=== PATIENT | female | born 1995 | race Two or more races ===

== ENCOUNTER 2021-07-10 14:38 | Emergency (ER) | payer MEDICAID ==
[~2021-07-10] VITALS: Ht 160 cm; Wt 81.6 kg
[2021-07-10 14:39] VITALS: BP 141/86
[2021-07-10] MEDS ORDERED: LIDOCAINE 1% HCL (LOCAL ANESTH.) INJ 20ML MDV IJ ONE (15:30)
[2021-07-10] MEDS ORDERED: IBUP800T27 PO (15:52)
[2021-07-10] MEDS ORDERED: IBUPROFEN 800 MG TAB PO ONE ×2 (15:58→16:00)
== END 2021-07-10 15:54 | disposition home or self-care (01) ==
LOC: ER 14:38
DX: S01.81XA Laceration without foreign body of other part of head, initial encounter (principal); Y09 Assault by unspecified means; Y93.89 Activity, other specified; Y92.89 Other specified places as the place of occurrence of the external cause; Y99.8 Other external cause status
CPT/HCPCS: 12011

== ENCOUNTER 2021-07-17 09:48 | Emergency (ER) | payer MEDICAID ==
[~2021-07-17] VITALS: Ht 160 cm; Wt 81.6 kg
[~2021-07-17 09:48] MED LIST: IBUP800T27 PO
[2021-07-17 10:31] VITALS: BP 126/81
== END 2021-07-17 10:45 | disposition home or self-care (01) ==
LOC: ER 09:48
DX: S01.81XD Laceration without foreign body of other part of head, subsequent encounter (principal); Z79.1 Long term (current) use of non-steroidal anti-inflammatories (NSAID); X58.XXXD Exposure to other specified factors, subsequent encounter

== ENCOUNTER 2022-06-27 16:14 | Emergency (ER) | payer MEDICAID ==
[~2022-06-27] VITALS: Ht 157.5 cm; Wt 96.5 kg
[2022-06-27 16:44] VITALS: BP 151/83
[2022-06-27 18:03] LABS: Urine Bacteria NONE SEEN /hpf (None Seen); Urine Blood Negative /uL (Negative); Urine Specific Gravity 1.018 (1.001-1.035); Urine WBC 1 /hpf (0 - 5)
[2022-06-27 19:38] LABS: Basophils # (auto) 0 10 ^3/uL (0-0.2); Basophils % (auto) 0.3 % (0.0-2.0); Eosinophils # (auto) 0.1 10 ^3/uL (0-0.8); Eosinophils % (auto) 0.9 % (0.0-7.0); Hematocrit 41.6 % (36.0-46.0); Lymphocytes # (auto) 2.6 10 ^3/uL (0.4-5.4); Lymphocytes % (auto) 22.7 % (10.0-50.0); Mean Corpuscular Hgb Conc. 33.7 g/dL (32.0-36.0); Mean Corpuscular Volume 89.3 fL (80.0-100.0); Monocytes # (auto) 0.9 10 ^3/uL (0-1.3); Monocytes % (auto) 8.1 % (0.0-12.0); Neutrophils # (auto) 7.8 10 ^3/uL (1.6-8.6); Red Blood Cells 4.66 10^6/uL (4.0-5.20); White Blood Cell 11.5 10^3/uL (4.4-10.8)
[2022-06-27 20:00] LABS: Albumin 3.6 g/dL (3.4-5.0); BUN/Creatinine Ratio 14.5; Bilirubin, Total 0.2 mg/dL (0.2-1.0); Calcium 8.8 mg/dL (8.5-10.1); Potassium 3.6 mmol/L (3.5-5.1); Total Protein 7.5 g/dL (6.4-8.2)
== END 2022-06-27 23:00 | disposition home or self-care (01) ==
LOC: ER 16:17
DX: Z34.91 Encounter for supervision of normal pregnancy, unspecified, first trimester (principal); M54.50 Low back pain, unspecified; Z3A.01 Less than 8 weeks gestation of pregnancy
CPT/HCPCS: 36415; 76801; 80053; 81001; 83690; 84702; 85025

== ENCOUNTER 2023-01-24 08:40 | Observation (INO) | payer MEDICAID ==
[~2023-01-24 08:40] MED LIST changes: +IBUP-1456 PO; -IBUP800T27 PO
[2023-01-24] MEDS ORDERED: PREN-96 PO (11:06)
== END 2023-01-24 11:15 | disposition home or self-care (01) ==
LOC: UNDOADMOB 08:40 → LDRP 08:40 → UNDODISOB 11:15
PROVIDERS: ADMIT Obstetrics & Gynecology; ATTEND Obstetrics & Gynecology
DX: O24.419 Gestational diabetes mellitus in pregnancy, unspecified control (principal); Z3A.37 37 weeks gestation of pregnancy
CPT/HCPCS: 59025; 76818; 81002; 82948; 82962; 94760; G0378

== ENCOUNTER 2023-01-31 17:27 | Observation (INO) | payer MEDICAID ==
[~2023-01-31 17:27] MED LIST changes: +PREN-96 PO
== END 2023-01-31 18:44 | disposition home or self-care (01) ==
LOC: LDRP 17:27
PROVIDERS: ADMIT Obstetrics & Gynecology; ATTEND Obstetrics & Gynecology
DX: O24.419 Gestational diabetes mellitus in pregnancy, unspecified control (principal); O62.9 Abnormality of forces of labor, unspecified; Z3A.38 38 weeks gestation of pregnancy
CPT/HCPCS: 59025; 76818; 81002; 82962; 94760; G0378

== ENCOUNTER 2023-02-03 16:50 | Observation (INO) | payer MEDICAID ==
[2023-02-05] MEDS ORDERED: METF-370 PO (15:40)
== END 2023-02-03 19:02 | disposition home or self-care (01) ==
LOC: UNDOADMOB 16:50 → LDRP 16:50 → UNDODISOB 19:02
PROVIDERS: ADMIT Obstetrics & Gynecology; ATTEND Obstetrics & Gynecology
DX: O24.419 Gestational diabetes mellitus in pregnancy, unspecified control (principal); Z3A.38 38 weeks gestation of pregnancy
CPT/HCPCS: 59025; 76818; 81002; 82962; 94760; G0378

== ENCOUNTER 2023-02-07 11:03 | Observation (INO) | payer MEDICAID ==
[~2023-02-07 11:03] MED LIST changes: +METF-370 PO
[2023-02-07] MEDS ORDERED: METF-370 PO (13:30)
== END 2023-02-07 13:31 | disposition home or self-care (01) ==
LOC: LDRP 11:03 → UNDOADMOB 11:03 → LDRP 11:07 → UNDODISOB 13:31
PROVIDERS: ADMIT Obstetrics & Gynecology; ATTEND Obstetrics & Gynecology
DX: O24.419 Gestational diabetes mellitus in pregnancy, unspecified control (principal); O12.03 Gestational edema, third trimester; Z3A.39 39 weeks gestation of pregnancy
CPT/HCPCS: 59025; 76805; 76818; 81002; 82948; 82962; 94760; G0378

== ENCOUNTER 2023-02-09 20:24 | Inpatient (IN) | payer MEDICAID ==
[~2023-02-09] VITALS: Ht 160 cm; Wt 113.4 kg
[~2023-02-09 20:24] MED LIST changes: -IBUP-1456 PO
[2023-02-09] MEDS ORDERED: BUTORPHANOL TARTRATE 2 MG/1 ML VIAL IV PRN ×2 (20:45)
[2023-02-09] MEDS ORDERED: PHISODERM TOP SOLN 240ML BTL TOP PRN (20:45)
[2023-02-09] MEDS ORDERED: DERMOPLAST 60ML BOTTLE TOP PRN (20:45)
[2023-02-09] MEDS ORDERED: LIDOCAINE 2%HCL (LOCAL ANESTH.) INJ 20ML MDV IJ PRN (20:45)
[2023-02-09] MEDS ORDERED: PROMETHAZINE HCL 25 MG/ML 1ML IV PRN (20:45)
[2023-02-09] MEDS ORDERED: WITCH HAZEL-GLYCERIN PAD TOP PRN (20:45)
[2023-02-09 21:10] LABS: Basophils # (auto) 0 10 ^3/uL (0-0.2); Basophils % (auto) 0.1 % (0.0-2.0); Eosinophils # (auto) 0.1 10 ^3/uL (0-0.8); Eosinophils % (auto) 0.7 % (0.0-7.0); Hematocrit 39.3 % (36.0-46.0); Hemoglobin 13.4 g/dL (12.2-16.2); Lymphocytes # (auto) 2.2 10 ^3/uL (0.4-5.4); Lymphocytes % (auto) 22.2 % (10.0-50.0); Mean Corpuscular Hemoglobin 28.4 pg (28.0-32.0); Mean Corpuscular Volume 83.4 fL (80.0-100.0); Monocytes # (auto) 0.7 10 ^3/uL (0-1.3); Monocytes % (auto) 6.7 % (0.0-12.0); Neutrophils # (auto) 7.1 10 ^3/uL (1.6-8.6); Neutrophils % (auto) 70.3 % (37.0-80.0); Nucleated Red Blood Cells % 0.1 %; Red Blood Cells 4.72 10^6/uL (4.0-5.20); Red Cell Distribution Width 16.8 % (11.8-14.3); White Blood Cell 10.1 10^3/uL (4.4-10.8)
[2023-02-09 21:19] LABS: Albumin 2.6 g/dL (3.4-5.0); Calcium 9.4 mg/dL (8.5-10.1); Potassium 3.7 mmol/L (3.5-5.1)
[2023-02-09 21:22] LABS: Alcohol, Urine < 3.0 mg/dL (0-10); Amphetamine Screen, Urine NEGATIVE (NEGATIVE); Barbiturate Scree,Urine NEGATIVE (NEGATIVE); Benzodiazephine Screen, Urine NEGATIVE (NEGATIVE); Cannabinoid Screen, Urine NEGATIVE (NEGATIVE); Cocaine Screen, Urine NEGATIVE (NEGATIVE); Opiate Scree,Urine NEGATIVE (NEGATIVE); Phencyclidine Screen, Urine NEGATIVE (NEGATIVE)
[2023-02-09 21:23] LABS: BUN/Creatinine Ratio 13.5 (10.0-20.0); Bilirubin, Total 0.1 mg/dL (0.2-1.0); Total Protein 6.6 g/dL (6.4-8.2)
[2023-02-09 21:40] LABS: INR 0.93 (0.9-1.15); Partial Thromboplastin Time 26.9 SEC (24.5-34.5)
[2023-02-09 21:41] LABS: Urine Bacteria NONE SEEN /hpf (None Seen); Urine Blood Negative /uL (Negative); Urine Mucus FEW (None Seen); Urine Specific Gravity 1.021 (1.001-1.035); Urine WBC 49 /hpf (0 - 5)
[2023-02-09] MEDS: LACTATED RINGER'S 1,000 ML IV SCH (21:57)
[2023-02-09] MEDS ORDERED: NALBUPHINE HCL 10 MG/1ml INJECTION IV PRN (23:30)
[2023-02-10] MEDS ORDERED: fentaNYL CITRATE 100 MCG/2 ML VL EPI ONE (00:30)
[2023-02-10] MEDS ORDERED: ROPIVACAINE HCL 200 ML EPI SCH ×2 (00:30→02:15)
[2023-02-10] MEDS ORDERED: Lidocaine W-Epinephrine 1.5%-1:200,000 INJ 10ml Vial IJ ONE (00:30)
[2023-02-10] MEDS ORDERED: LIDOCAINE HCL 2 %PF INJ 10ML AMP IJ ONE (00:30)
[2023-02-10] MEDS ORDERED: ePHEDrine SULFATE 50 MG/ML AMP IV ONE ×2 (00:30→02:15)
[2023-02-10] MEDS ORDERED: NALOXONE HCL 0.4 MG/ML VIAL IV ONE ×2 (00:30→02:15)
[2023-02-10] MEDS: LACTATED RINGER'S 1,000 ML IV SCH ×2 (00:51→04:24)
[2023-02-10 01:23] LABS: Urine Bacteria NONE SEEN /hpf (None Seen); Urine Blood TRACE /uL (Negative); Urine Specific Gravity 1.007 (1.001-1.035); Urine WBC 6 /hpf (0 - 5)
[2023-02-10] MEDS ORDERED: SODIUM CHLORIDE 0.9% 500 ML IV PRN (02:15)
[2023-02-10] MEDS ORDERED: LACTATED RINGER'S 500 ML IV ONE (02:15)
[2023-02-10] MEDS ORDERED: fentaNYL CITRATE 100 MCG/2 ML VL IV ONE (02:15)
[2023-02-10] MEDS ORDERED: LACT. RINGERS/OXYTOCIN 20UNITS 500 ML IV ONE ×2 (03:00→03:30)
[2023-02-10] MEDS ORDERED: miSOPROStol 100 mcg TAB ONE (05:54)
[2023-02-10] MEDS ORDERED: METHYLERGONOVINE MALEATE 0.2 MG/ML AMP IM ONE (05:54)
[2023-02-10] MEDS ORDERED: METHYLERGONOVINE MALEATE 0.2 MG/ML AMP IM PRN (06:00)
[2023-02-10] MEDS ORDERED: miSOPROStol 100 mcg TAB SL PRN (06:00)
[2023-02-10] MEDS ORDERED: miSOPROStol 100 mcg TAB PR PRN (06:00)
[2023-02-10] MEDS ORDERED: ACETAMINOPHEN 325 MG TAB PO PRN (07:15)
[2023-02-10] MEDS ORDERED: IBUPROFEN 600 MG TAB PO PRN (07:15)
[2023-02-10 11:00] VITALS: BP 128/72
[2023-02-10 15:00] VITALS: BP 132/74
[2023-02-10 18:45] VITALS: BP 121/57
[2023-02-10 22:31] VITALS: BP 123/62
[2023-02-11 03:12] VITALS: BP 118/59
[2023-02-11 07:00] VITALS: BP 129/59
[2023-02-11 07:07] LABS: RPR Non Reactive (Non Reactive)
[2023-02-11] MEDS ORDERED: TETANUS-DIPTH-ACEL PERTUSSIS 0.5ML SYR Tdap IM ONE (11:30)
== END 2023-02-11 13:00 | disposition home or self-care (01) | DRG 560 ==
LOC: LDRP 20:24
PROVIDERS: ADMIT Obstetrics & Gynecology; ATTEND Obstetrics & Gynecology
PROC: 10E0XZZ Delivery of Products of Conception, External Approach (ICD-10-PCS; principal; 2023-02-10)
PROC: 3E0R3BZ Introduction of Anesthetic Agent into Spinal Canal, Percutaneous Approach (ICD-10-PCS; 2023-02-10)
PROC: 00HU33Z Insertion of Infusion Device into Spinal Canal, Percutaneous Approach (ICD-10-PCS; 2023-02-10)
DX: O41.03X0 Oligohydramnios, third trimester, not applicable or unspecified (principal); Z37.0 Single live birth; O24.429 Gestational diabetes mellitus in childbirth, unspecified control; Z23 Encounter for immunization; Z3A.39 39 weeks gestation of pregnancy
CPT/HCPCS: 36415; 59025; 59200; 59409; 62282; 80053; 80307; 81001; 81002; 82962; 85025; 85610; 85730; 86592; 86850; 86900; 86901; 90715; 94760; 96360; 96361; 96365; 96366; 96372; G0378; J2590

== ENCOUNTER 2023-10-13 19:05 | Emergency (ER) | payer MEDICAID ==
[~2023-10-13] VITALS: Ht 160 cm; Wt 97.1 kg
[2023-10-13 19:17] VITALS: BP 145/88; PULSE 120
[2023-10-13] MEDS: IPRATROPIUM BROM 0.5 MG/2.5ML INH SOL NEB ONE (19:52)
[2023-10-13] MEDS: ALBUTEROL SULF 2.5 MG/0.5ML(0.5%) NEB SOLN NEB ONE ×2 (19:53→22:10)
[2023-10-13 20:46] LABS: COVID19 ANTIGEN SOFIA FIA NEGATIVE (NEGATIVE)
[2023-10-13] MEDS ORDERED: ALBU108A5 IN (21:59)
[2023-10-13] MEDS ORDERED: IBUP-1456 PO (21:59)
[2023-10-13] MEDS ORDERED: PRED10TA PO (21:59)
[2023-10-13] MEDS ORDERED: CLIN300C70 PO (21:59)
[2023-10-13] MEDS ORDERED: BENZLOZ2 MT (21:59)
[2023-10-13] MEDS ORDERED: ALBUTEROL SULF 2.5 MG/0.5ML(0.5%) NEB SOLN ONE (22:00)
[2023-10-13 22:11] VITALS: RESP 28; O2SAT 97
[2023-10-13] MEDS: guaiFENesin-CODEINE Liq 5 ML UD PO ONE (22:23)
[2023-10-13] MEDS: cefTRIAXone SOD 1,000 MG VL IM ONE (22:24)
[2023-10-13] MEDS: methylPREDNISolone SOD SUCC 125 MG/2 ML VL IM ONE (22:26)
[2023-10-13 22:27] VITALS: TEMP 99.5
[2023-10-13] MEDS: IBUPROFEN 800 MG TAB PO ONE (22:27)
[2023-10-13] MEDS: ACETAMINOPHEN 325 MG TAB PO ONE (22:27)
== END 2023-10-13 22:37 | disposition home or self-care (01) ==
LOC: ER 19:05
DX: J20.9 Acute bronchitis, unspecified (principal); J03.90 Acute tonsillitis, unspecified; R50.9 Fever, unspecified; Z20.822 Contact with and (suspected) exposure to COVID-19; Z79.899 Other long term (current) drug therapy
CPT/HCPCS: 36415; 71045; 87426; 94640; 96372; 99284; J0696; J2930; J7644

== ENCOUNTER 2024-08-02 14:28 | Observation (INO) | payer MEDICAID ==
[~2024-08-02 14:28] MED LIST changes: +ALBU108A5 IN; +BENZLOZ2 MT; +CLIN1CAP70 PO; +IBUP-1456 PO; +PRED10TA PO
[2024-08-02 15:25] LABS: Basophils # (auto) 0 10 ^3/uL (0-0.2); Basophils % (auto) 0.3 % (0.0-2.0); Eosinophils # (auto) 0.1 10 ^3/uL (0-0.8); Eosinophils % (auto) 0.7 % (0.0-7.0); Hematocrit 40.3 % (36.0-46.0); Hemoglobin 13.5 g/dL (12.2-16.2); Lymphocytes # (auto) 2.3 10 ^3/uL (0.4-5.4); Lymphocytes % (auto) 23.1 % (10.0-50.0); Mean Corpuscular Hgb Conc. 33.4 g/dL (32.0-36.0); Mean Corpuscular Volume 86.8 fL (80.0-100.0); Monocytes # (auto) 0.7 10 ^3/uL (0-1.3); Neutrophils % (auto) 68.9 % (37.0-80.0); Nucleated Red Blood Cells % 0.3 %; Platelet Count (auto) 199 10^3/uL (140-450); Red Blood Cells 4.64 10^6/uL (4.0-5.20); Red Cell Distribution Width 16.7 % (11.8-14.3); White Blood Cell 10.1 10^3/uL (4.4-10.8)
[2024-08-02 15:44] LABS: Albumin 3.8 g/dL (3.2-4.8); Anion Gap 9 (5-15); BUN/Creatinine Ratio 15.2 (10.0-20.0); Potassium 3.8 mmol/L (3.5-5.1); Sodium 136 mmol/L (136-145); Total Protein 6.4 g/dL (5.7-8.2)
[2024-08-02 15:47] LABS: Urine Bacteria FEW /hpf (None Seen); Urine Blood Negative /uL (Negative); Urine Clarity Turbid (Clear); Urine Color Colorless (Yellow); Urine Protein, UAD Negative (Negative); Urine Specific Gravity 1.004 (1.001-1.035); Urine Urobilinogen Normal (Negative); Urine WBC 6 /hpf (0 - 5)
[2024-08-02 15:48] LABS: Chloride 108 mmol/L (98-107)
[2024-08-02 15:49] LABS: Alanine Aminotransferase < 9 U/L (7-40); Alkaline Phosphatase 168 U/L (46-116); Aspartate Aminotransferase 10 U/L (13-40); Bilirubin, Total 0.3 mg/dL (0.2-1.0); Blood Urea Nitrogen 7 mg/dL (9-23); Carbon Dioxide 19 mmol/L (20-31); Glucose 64 mg/dL (74-106)
[2024-08-02 15:58] LABS: INR 0.95 (0.9-1.15); Partial Thromboplastin Time 26.7 SEC (24.5-34.5); Prothrombin Time 10.1 sec (9.3-11.8)
[2024-08-02 16:02] LABS: Uric Acid 6.2 mg/dL (3.1-7.8)
[2024-08-02 16:12] LABS: Creatinine, Urine 15.05 mg/dL (30.0-125.0); Urine Protein/Creatinine Ratio 0.53
--- NOTE | 2024-08-02 16:16 | DVH ---
BIOPHYSICAL PROFILE HISTORY: PIH R/O TECHNIQUE: Multiple transabdominal real-time grayscale sonographic images through the gravid uterus of the fetus with duplex Doppler color flow and M-mode spectral analysis FINDINGS: BIOPHYSICAL PROFILE: breathing score: 2 movement score: 2 tone score: 2 Quantitative SARAH score: 2 (SARAH: 17.5 Cm.) Total score: 8/8 Single live fetus in cephalic presentation. heart rate 174 beats per minute. Fundal placenta without previa or abruption IMPRESSION: 1. Biophysical profile score: 8/8 HS:Y
--- NOTE | 2024-08-02 16:30 | DVHDS2 ---
Physician Discharge Progress N Final Diagnosis: Term IUP elevated BP's Secondary Diagnosis: Mild pre-eclampsia, asymptomatic Operations or Procedures: Operations or Procedures NST/BPP/ SARAH all WNL PIH labs neg except for elevated Urine prot creat ratio 0.53 Patient DECLINED INDUCTION of labor tonight, against medical advise. Will return in the morning for induction of labor. Condition on Discharge: Guarded Disposition: Home Discharge Instructions: Diet: Regular Activity: Light activity Follow Up/Referral: at 7am 08/03/24 Medications: N/A Follow Up Care: Discharge Statement: "Patient was advised to return to the ER or call 911 if any headaches, dizziness, shortness of breath, chest pain, abdominal pain, bleeding, fevers, or worsening of medical condition. Patient was counseled about treatment plan, medications, possible side effects, patientverbalized understanding. All questions were answered to the best of my ability. This discharge took greater then 30 minutes in planning, reviewing documentation, counseling the patient, and discussing with other team members." DARRELL HORN DO Aug 02, 2024 16:30
== END 2024-08-02 16:55 | disposition home or self-care (01) ==
LOC: LDRP 14:28
PROVIDERS: ADMIT Obstetrics & Gynecology; ATTEND Obstetrics & Gynecology
DX: O26.893 Other specified pregnancy related conditions, third trimester (principal); R03.0 Elevated blood-pressure reading, without diagnosis of hypertension; O14.93 Unspecified pre-eclampsia, third trimester; Z3A.39 39 weeks gestation of pregnancy; Z79.899 Other long term (current) drug therapy
CPT/HCPCS: 36415; 76818; 80053; 81001; 82570; 84156; 84550; 85025; 85610; 85730; G0378; 59025; 81002

== ENCOUNTER 2024-08-02 21:00 | Inpatient (IN) | payer MEDICAID ==
[~2024-08-02] VITALS: Ht 160 cm; Wt 112.0 kg
[2024-08-02] MEDS ORDERED: LIDOCAINE 2%HCL (LOCAL ANESTH.) INJ 20ML MDV IJ PRN (21:30)
[2024-08-02] MEDS ORDERED: NALBUPHINE HCL 10 MG/1ml INJECTION IV PRN (21:30)
[2024-08-02 22:17] LABS: Basophils # (auto) 0 10 ^3/uL (0-0.2); Basophils % (auto) 0.1 % (0.0-2.0); Eosinophils # (auto) 0 10 ^3/uL (0-0.8); Eosinophils % (auto) 0.5 % (0.0-7.0); Hemoglobin 12.9 g/dL (12.2-16.2); Lymphocytes # (auto) 2.3 10 ^3/uL (0.4-5.4); Mean Corpuscular Hemoglobin 29.6 pg (28.0-32.0); Mean Corpuscular Volume 86.9 fL (80.0-100.0); Monocytes # (auto) 0.7 10 ^3/uL (0-1.3); Monocytes % (auto) 6.8 % (0.0-12.0); Neutrophils # (auto) 6.6 10 ^3/uL (1.6-8.6); Neutrophils % (auto) 68.6 % (37.0-80.0); Nucleated Red Blood Cells % 0.1 %; Platelet Count (auto) 180 10^3/uL (140-450); Red Blood Cells 4.37 10^6/uL (4.0-5.20); Red Cell Distribution Width 17.3 % (11.8-14.3); White Blood Cell 9.6 10^3/uL (4.4-10.8)
[2024-08-02 22:25] LABS: Urine Bacteria FEW /hpf (None Seen); Urine Blood Negative /uL (Negative); Urine Budding Yeast MODERATE /hpf (None Seen); Urine Clarity Turbid (Clear); Urine Color Yellow (Yellow); Urine Mucus FEW (None Seen); Urine Protein, UAD 1+ (Negative); Urine Specific Gravity 1.029 (1.001-1.035); Urine Urobilinogen Normal (Negative); Urine WBC 32 /hpf (0 - 5); Urine pH 5.5 (5.0-9.0)
[2024-08-02 22:36] LABS: Barbiturate Scree,Urine Neg (NEGATIVE); Opiate Scree,Urine Neg (NEGATIVE); Phencyclidine Screen, Urine Neg (NEGATIVE)
[2024-08-02 22:36] LABS: Albumin 3.5 g/dL (3.2-4.8); Anion Gap 10 (5-15); BUN/Creatinine Ratio 16.3 (10.0-20.0); Calcium 9.8 mg/dL (8.7-10.4); Carbon Dioxide 20 mmol/L (20-31); Sodium 139 mmol/L (136-145)
[2024-08-02 22:37] LABS: Alanine Aminotransferase < 9 U/L (7-40); Alkaline Phosphatase 157 U/L (46-116); Aspartate Aminotransferase 9 U/L (13-40); Bilirubin, Total 0.2 mg/dL (0.2-1.0); Blood Urea Nitrogen 8 mg/dL (9-23); Chloride 109 mmol/L (98-107); Glucose 119 mg/dL (74-106)
[2024-08-02 22:37] LABS: Amphetamine Screen, Urine Neg (NEGATIVE); Benzodiazephine Screen, Urine Neg (NEGATIVE); Cannabinoid Screen, Urine Neg (NEGATIVE); Cocaine Screen, Urine Neg (NEGATIVE)
[2024-08-02 22:39] LABS: INR 0.94 (0.9-1.15); Partial Thromboplastin Time 25.2 SEC (24.5-34.5)
[2024-08-02] MEDS ORDERED: miSOPROStol 50 MCG per PRE-CUT 1/2 TAB PO PRN (23:15)
[2024-08-03] MEDS ORDERED: TERBUTALINE SULFATE 1 MG/ML 1ML VIAL SC PRN (01:45)
[2024-08-03] MEDS: LACTATED RINGER'S 1,000 ML IV SCH (02:06)
[2024-08-03] MEDS: ACETAMINOPHEN 325 MG TAB PO PRN (02:10)
[2024-08-03] MEDS ORDERED: NALOXONE HCL 0.4 MG/ML VIAL IV ONE (02:15)
[2024-08-03] MEDS: LACTATED RINGER'S 1,000 ML IV ONE (02:33)
[2024-08-03] MEDS: ePHEDrine SULFATE 50 MG/ML AMP IV ONE ×2 (03:43→06:12)
[2024-08-03] MEDS: PHISODERM TOP SOLN 240ML BTL TOP PRN (04:04)
[2024-08-03] MEDS: DERMOPLAST 60ML BOTTLE TOP PRN (04:04)
[2024-08-03] MEDS: WITCH HAZEL-GLYCERIN PAD TOP PRN (04:05)
[2024-08-03] MEDS: PENICILLIN G POT 5MIL/D5 50ML 50 ML IV ONE (04:13)
[2024-08-03] MEDS: LACT. RINGERS/OXYTOCIN 20UNITS 1,000 ML IV SCH (04:32)
[2024-08-03] MEDS: ROPIVACAINE HCL 200 ML ONE (04:39)
--- NOTE | 2024-08-03 06:48 | DVHHP2 ---
OB CC & HPI Date Date of Admission: Aug 03, 2024 Patient Identification: : 3 Para: 2 EGA: 39 Chief Complaints: Reason for admission: induction of labor Indication for induction: medical complication (HTN) History of Present Complaints 29y IUP 39 wk admitted with mild pre-eclampsia. BP's elevated in clinic and in L&D triage, urine prot/cr elevated Patient denies any symptoms today, but did have headache earlier. Past Medical History Cardiac: No pertinent Hx Pulmonary: No pertinent Hx Central Nervous System: No pertinent Hx GI: No pertinent Hx Hemotology/Oncology: No pertinent Hx Hepatobiliary: No pertinent Hx Psychiatric: No pertinent Hx Musculoskeletal: No pertinent Hx Rheumotologic: No pertinent Hx Infectious Disease: No peritnent Hx ENT: No pertinent Hx Renal/: No pertinent Hx Endocrine: No pertinent Hx Dermatology: No pertinent Hx Past Surgical History: No pertinent Hx OB History OB History Care: Good Care Ultrasounds: Normal mid trimester US Obstetrical Complications: Pre-eclampsia Allergies: Coded Allergies: NO KNOWN ALLERGIES (Unverified , 07/10/21) Home Meds Active Scripts Ibuprofen (Ibuprofen) 800 Mg Tab, 1 TAB PO Q6HPRN PRN, #90 TAB 1 Refill As needed for fever or pain Prov:LUIS A OROZCO Q RADIO HOST 10/13/23 Prednisone (Prednisone) 10 Mg Tab, 1 TAB PO BID for 5 Days, #10 TAB Prov:LUIS A OROZCO Q RADIO HOST 10/13/23 Albuterol Sulfate (Albuterol Sulfate Hfa) 108 Mcg/Act Aer, 1 PUFF IN Q4HPRN PRN, #1 INH Prov:LUIS A OROZCO Q RADIO HOST 10/13/23 Benzocaine-Menthol (Mouth-Thro (Cepacol Sore Throat) 1 Abhi Abhi, 1 ABHI MT Q4HPRN PRN, #24 ABHI As needed for sore throat Prov:LUIS A OROZCO Q RADIO HOST 10/13/23 Clindamycin Hcl (Clindamycin Hcl) 300 Mg Cap, 1 CAP PO TID for 10 Days, #30 CAP Prov:LUIS A OROZCO Q RADIO HOST 10/13/23 Metformin Hydrochloride (Metformin Hcl) 500 Mg Tab, 1000 MG PO BID for 30 Days, MG Prov:ELSI MOFFETT CNM 02/07/23 Reported Medications Vit W/ Ferrous Fumara ( One Daily) Daily Tab, 1 TAB PO DAILY, #90 TAB 3 Refills 01/24/23 Current Medications Current Medications Medications (Trade) Dose Ordered Sig/Linda Route PRN Reason Start Time Stop Time Status Last Admin Lactated Ringer's 1,000 ml @ 125 mls/hr Q8H IV 08/02/24 21:30 08/03/24 04:12 Nalbuphine HCl (Nubain) 10 mg Q4HP PRN IV MODERATE PAIN (4-6 PAIN SCALE) 08/02/24 21:30 Penicillin G Potassium 6267045 units/Dextrose 50 ml @ 100 mls/hr Q4H IV 08/03/24 01:30 Witch Lashell (Tucks) 1 pad PRN PRN TOP PERINEAL AREA DISCOMFORT 08/02/24 21:30 08/03/24 04:05 Sodium Lauryl Sulfate (Phisoderm) 240 ml PRN PRN TOP PERINEAL AREA DISCOMFORT 08/02/24 21:30 08/03/24 04:04 Benzocaine (Dermoplast) 1 applic PRN PRN TOP PERINEAL AREA DISCOMFORT 08/02/24 21:30 08/03/24 04:04 Lidocaine HCl (Xylocaine) 20 ml ONCE PRN IJ PERINEAL AREA DISCOMFORT 08/02/24 21:30 Misoprostol (Cytotec) 50 mcg Q4HPRN PRN PO CERVICAL RIPENING 08/02/24 23:15 Acetaminophen (Tylenol Tablet) 650 mg Q4HP PRN PO MILD PAIN (1-3 PAIN SCALE) 08/03/24 01:30 08/03/24 02:10 Oxytocin 1,000 ml @ 6 ml/hr Q24H IV 08/03/24 01:45 08/03/24 04:32 Terbutaline Sulfate (Brethine Inj) 0.25 mg ONCE PRN SC Uterine tachysystole 08/03/24 01:45 Family & Social History Family/Social History Blood Type: O+ Rubella: immune RPR/VDRL: Negative GBS Status: Positive HBsAG: Negative Review of Systems Constitutional: No symptom reported Ears, Nose, & Throat: No symptom reported Eyes: No symptom reported Pulmonary/Respiratory: No symptom reported Cardiovascular: No symptom reported Gastrointestinal: No symptom reported Genitourinary: No symptom reported Musculoskeletal: No symptom reported Skin: No symptom reported Psychiatric: No symptom reported Endocrine: No symptom reported Hemotologic/Lymphatic: No symptom reported OB Admission Exam Physical Exam Vitals: see EHR HEENT: NCAT Heart: Rhythm Normal Lungs: Clear Abdomen: Gravid Extremities: Normal Reflexes: Normal Pelvic Exam: RN exam Cervical Dilatation: 4cm Effacement: 50% Station: -2 Membranes: Intact Heart Rate: 140's Accelerations: Accelerations Present Decelerations: No Decelerations Short Term Variability: Present Director Of Promotions Variability: Average (6-25) Contractions on Admission: 6-10 Minutes Apart Intensity: Mild OB Plan Plan Admitting Diagnosis: Pre-eclampsia without severe features Term IUP 39 wk, Induction of labor GBS + Plan: Induction Induction Methd: Pitocin protocol Other Plan: Continue to observe BP Magnesium sulfate indicated only if severe HTN or severe features of Pre-E present Continue Labor induction w/ Pitocin GBS prophylaxis with Pen G antibiotics. DARRELL HORN DO Aug 03, 2024 06:47
[2024-08-03] MEDS: PENICILLIN G POTASSIUM 2,500,000 UNITS in D5W 5% 50 ML IV SCH (09:15)
--- NOTE | 2024-08-03 13:41 | DVHPN2 ---
OB Labor Progress Note Date and Time Seen Date Seen: Aug 03, 2024 Time Seen: 13:38 Subjective Patient reports: No new complaints, Feels better Subjective Comment s/p Epidural NO symptoms of Pre_Eclampsia Objective Vital Signs Afeb VSS Monitoring Method Monitoring Method: Internal (FSE/IUPC placed w/out difficulty) Heart Rate Heart Rate Baseline: 140 Heart Rate Variability: Moderate Presence of FHR Accelerations: Yes Presence of FHR Decelerations: No Contractions Contractions Intensity: Strong Membranes Membranes: Ruptured (AROM clear) Vaginal Exam Vag Exam Deferred: No Vaginal Exam Dilation: 5 Vaginal Exam Effacement: 60 Vaginal Exam Station: -2 Vaginal Exam Presentation: VTX Vaginal Exam Show: None Medications Medications - Pitocin: Yes Medication - Epidural: Yes Lab Results Lab Results Current Medications Medications (Trade) Dose Ordered Sig/Linda Start Time Stop Time Status Last Admin Dose Admin Lactated Ringer's 1,000 ml @ 125 mls/hr Q8H 08/02/24 21:30 08/03/24 04:12 125 MLS/HR Nalbuphine HCl (Nubain) 10 mg Q4HP PRN 08/02/24 21:30 Penicillin G Potassium 50 ml @ 100 mls/hr ONCE ONCE 08/02/24 21:30 08/02/24 21:59 DC 08/03/24 04:13 100 MLS/HR Penicillin G Potassium [id number] units/Dextrose 50 ml @ 100 mls/hr Q4H 08/03/24 01:30 08/03/24 13:17 100 MLS/HR Travis Lobo (Tucks) 1 pad PRN PRN 08/02/24 21:30 08/03/24 04:05 1 PAD Sodium Lauryl Sulfate (Phisoderm) 240 ml PRN PRN 08/02/24 21:30 08/03/24 04:04 240 ML Benzocaine (Dermoplast) 1 applic PRN PRN 08/02/24 21:30 08/03/24 04:04 1 APPLIC Lidocaine HCl (Xylocaine) 20 ml ONCE PRN 08/02/24 21:30 Misoprostol (Cytotec) 50 mcg Q4HPRN PRN 08/02/24 23:15 Acetaminophen (Tylenol Tablet) 650 mg Q4HP PRN 08/03/24 01:30 08/03/24 02:10 650 MG Oxytocin 1,000 ml @ 6 ml/hr Q24H 08/03/24 01:45 08/03/24 04:32 6 ML/HR Terbutaline Sulfate (Brethine Inj) 0.25 mg ONCE PRN 08/03/24 01:45 Naloxone HCl (Narcan) 0.2 mg PRN ONCE 08/03/24 02:15 08/03/24 02:16 DC Ephedrine Sulfate (ePHEDrine SULFATE) 10 mg PRN ONCE 08/03/24 02:15 08/03/24 02:16 DC 08/03/24 03:43 10 MG Lactated Ringer's 1,000 ml @ 1,000 mls/hr Q1H ONCE 08/03/24 02:15 08/03/24 03:14 DC 08/03/24 02:33 1,000 MLS/HR Ephedrine Sulfate (ePHEDrine SULFATE) 10 mg PRN ONCE 08/03/24 06:00 08/03/24 06:01 DC 08/03/24 06:12 10 MG Oxytocin 500 ml @ 999 mls/hr Q31M ONCE 08/03/24 06:00 08/03/24 06:30 DC Oxytocin 500 ml @ 125 mls/hr Q4H ONCE 08/03/24 06:30 08/03/24 10:29 DC Laboratory Tests Test 08/02/24 21:56 08/02/24 21:53 Range/Units White Blood Count 9.6 4.4-10.8 10^3/uL Red Blood Count 4.37 4.0-5.20 10^6/uL Hemoglobin 12.9 12.2-16.2 g/dL Hematocrit 38.0 36.0-46.0 % Mean Corpuscular Volume 86.9 80.0-100.0 fL Mean Corpuscular Hemoglobin 29.6 28.0-32.0 pg Mean Corpuscular Hemoglobin Concent 34.0 32.0-36.0 g/dL Red Cell Distribution Width 17.3 H 11.8-14.3 % Platelet Count 180 140-450 10^3/uL Mean Platelet Volume 8.7 6.9-10.8 fL Neutrophils (%) (Auto) 68.6 37.0-80.0 % Lymphocytes (%) (Auto) 24.0 10.0-50.0 % Monocytes (%) (Auto) 6.8 0.0-12.0 % Eosinophils (%) (Auto) 0.5 0.0-7.0 % Basophils (%) (Auto) 0.1 0.0-2.0 % Neutrophils # (Auto) 6.6 1.6-8.6 10 ^3/uL Lymphocytes # (Auto) 2.3 0.4-5.4 10 ^3/uL Monocytes # (Auto) 0.7 0-1.3 10 ^3/uL Eosinophils # (Auto) 0 0-0.8 10 ^3/uL Basophils # (Auto) 0 0-0.2 10 ^3/uL Nucleated Red Blood Cells 0.1 % Prothrombin Time 10.0 9.3-11.8 sec Prothrombin Time INR 0.94 0.9-1.15 Activated Partial Thromboplast Time 25.2 24.5-34.5 SEC Sodium Level 139 136-145 mmol/L Potassium Level 4.0 3.5-5.1 mmol/L Chloride Level 109 H 98-107 mmol/L Carbon Dioxide Level 20 20-31 mmol/L Anion Gap 10 5-15 Blood Urea Nitrogen 8 L 9-23 mg/dL Creatinine 0.49 L 0.550-1.02 mg/dL Glomerular Filtration Rate Calc 132 >90 mL/min BUN/Creatinine Ratio 16.3 10.0-20.0 Serum Glucose 119 H 74-106 mg/dL Calcium Level 9.8 8.7-10.4 mg/dL Total Bilirubin 0.2 0.2-1.0 mg/dL Aspartate Amino Transferase (AST) 9 L 13-40 U/L Alanine Aminotransferase (ALT) < 9 7-40 U/L Alkaline Phosphatase 157 H 46-116 U/L Total Protein 6.0 5.7-8.2 g/dL Albumin 3.5 3.2-4.8 g/dL Rapid Plasma Reagin Pending Treponema pallidum Ab (TP-PA) Pending Hepatitis C Antibody Negative Negative Urine Color Yellow Yellow Urine Clarity Turbid H Clear Urine pH 5.5 5.0-9.0 Urine Specific [place] 1.029 1.001-1.035 Urine Protein 1+ H Negative Urine Ketones 1+ H Negative Urine Blood Negative Negative /uL Urine Nitrite Negative Negative Urine Bilirubin Negative Negative Urine Urobilinogen Normal Negative mg/dL Urine Leukocyte Esterase 3+ Negative /uL Urine RBC 54 0 - 4 /hpf Urine WBC 32 0 - 5 /hpf Urine Squamous Epithelial Cells Mod <5 /hpf Urine Bacteria Few H None Seen /hpf Urine Mucus Few None Seen Urine Yeast (Budding) Moderate None Seen /hpf Urine Glucose Normal Normal mg/dL Urine Opiates Screen Neg NEGATIVE Urine Fentanyl Screen Neg NEGATIVE Urine Barbiturates Screen Neg NEGATIVE Urine Phencyclidine Screen Neg NEGATIVE Urine Amphetamines Screen Neg NEGATIVE Urine Benzodiazepines Screen Neg NEGATIVE Urine Cocaine Screen Neg NEGATIVE Urine Cannabinoids Screen Neg NEGATIVE Assessment Assessment Mild Pre-Eclampsia, IUP 39 wk- Induction of labor GBS Pos Morbid obesity s/p AROM Cat 1 FHR Plan Plan Continue current care IV pitocin to achieve adequate labor progress, increase to >= 200 MVU Plan discussed with: Patient DARRELL HORN DO Aug 03, 2024 13:41
[2024-08-03] MEDS: LACT. RINGERS/OXYTOCIN 20UNITS 500 ML IV ONE ×2 (16:01→16:24)
--- NOTE | 2024-08-03 16:03 | LDN2 ---
Labor and Delivery Note Date 08/03/24 Age 29 3 Para 3 EGA 39 Diagnosis Induction of labor 39 wk due to mild pre-eclampsia GBS+ Morbid maternal obesity Vaginal Delivery: VTX Vacuum Assisted: No Placenta: Spontaneous Sex: Female Weight Pending Apgars 8/9 Nuchal Cord Transected: No Amniotic Fluid: Clear Anesthesia Epidural Episiotomy: No EBL 75 mL Labs Blood Bank 08/02/24 21:56: Blood Type O POSITIVE Complications None Comments/Significant Med Layo NUCHAL CORD x 1, reduced at perineum before delivery of body Baby vigorous at , no shoulder dystocia or complications DARRELL HORN DO Aug 03, 2024 16:03
[2024-08-03] MEDS ORDERED: IBUPROFEN 600 MG TAB PO PRN (18:15)
[2024-08-03] MEDS ORDERED: ACETAMINOPHEN 325 MG TAB PO PRN (18:15)
[2024-08-03 19:00] VITALS: BP 124/59; PULSE 99; RESP 18; TEMP 98.8; O2SAT 97
[2024-08-03] MEDS: IBUPROFEN 600 MG TAB PO PRN (22:04)
--- NOTE | 2024-08-04 01:49 | DVHPN2 ---
Progress Note Date Seen: Aug 04, 2024 Subjective PPD#1 s/p Induction of labor w/ due to Pre-eclampsia (mild) S: doing well. NO pain, lochia mild. No headache, No epigastric pain vital signs Vital Sign Date Time Temp Pulse Resp B/P (MAP) Pulse Ox O2 Delivery O2 Flow Rate FiO2 08/03/24 19:00 98.8 99 18 124/59 (80) 97 98.8 08/03/24 19:00 Room Air Total Intake and Output 08/03/24 08/03/24 08/04/24 15:00 23:00 07:00 Output Total 600 ml Balance -600 ml medications Current Medications Medications Dose Ordered Sig/Linda Route Start Time Stop Time Status Last Admin Dose Admin Lactated Ringer's 1,000 ml @ 125 mls/hr Q8H IV 08/02/24 21:30 08/03/24 04:12 125 MLS/HR Nalbuphine HCl 10 mg Q4HP PRN IV 08/02/24 21:30 Cancel Witch Lashell 1 pad PRN PRN TOP 08/02/24 21:30 08/03/24 04:05 1 PAD Sodium Lauryl Sulfate 240 ml PRN PRN TOP 08/02/24 21:30 08/03/24 04:04 240 ML Benzocaine 1 applic PRN PRN TOP 08/02/24 21:30 08/03/24 04:04 1 APPLIC Lidocaine HCl 20 ml ONCE PRN IJ 08/02/24 21:30 Cancel Misoprostol 50 mcg Q4HPRN PRN PO 08/02/24 23:15 Cancel Terbutaline Sulfate 0.25 mg ONCE PRN SC 08/03/24 01:45 Cancel Acetaminophen 650 mg Q4HP PRN PO 08/03/24 22:00 Ibuprofen 600 mg Q6HP PRN PO 08/03/24 22:00 08/03/24 22:04 600 MG laboratory and microbiology Laboratory Tests 08/02/24 21:56 Test 08/02/24 21:56 Range/Units Serum Glucose 119 H 74-106 mg/dL Objective O: AFVSS Chest: heart and lung sounds normal. Abd soft, non-tender, fundus firm, BS, no rebound or guarding, Ext Neg Homans, Non-tender, edema Lochia - minimal Labs Pending Assessment/Plan PPD#1 s/p Doing well Pre-Eclampsia, BP's normal post delivery Plan: Continue to observe DC Planning Plan discussed with: Patient DARRELL HORN DO Aug 04, 2024 01:49
[2024-08-04 02:27] LABS: Basophils # (auto) 0 10 ^3/uL (0-0.2); Basophils % (auto) 0.2 % (0.0-2.0); Eosinophils # (auto) 0 10 ^3/uL (0-0.8); Eosinophils % (auto) 0.4 % (0.0-7.0); Hematocrit 37.3 % (36.0-46.0); Hemoglobin 12.4 g/dL (12.2-16.2); Lymphocytes # (auto) 2.9 10 ^3/uL (0.4-5.4); Lymphocytes % (auto) 26.5 % (10.0-50.0); Mean Corpuscular Hemoglobin 29.2 pg (28.0-32.0); Mean Corpuscular Hgb Conc. 33.3 g/dL (32.0-36.0); Mean Corpuscular Volume 87.7 fL (80.0-100.0); Monocytes # (auto) 0.7 10 ^3/uL (0-1.3); Monocytes % (auto) 6.7 % (0.0-12.0); Neutrophils # (auto) 7.2 10 ^3/uL (1.6-8.6); Neutrophils % (auto) 66.2 % (37.0-80.0); Nucleated Red Blood Cells % 0.1 %; Platelet Count (auto) 173 10^3/uL (140-450); Red Blood Cells 4.25 10^6/uL (4.0-5.20); White Blood Cell 10.9 10^3/uL (4.4-10.8)
[2024-08-04 02:46] VITALS: BP 128/60; PULSE 85; TEMP 97.7; O2SAT 95
[2024-08-04 02:53] LABS: Albumin 3.4 g/dL (3.2-4.8); Anion Gap 10 (5-15); Calcium 9.8 mg/dL (8.7-10.4); Carbon Dioxide 22 mmol/L (20-31); Glucose 88 mg/dL (74-106); Potassium 4.3 mmol/L (3.5-5.1); Sodium 141 mmol/L (136-145)
[2024-08-04 02:59] LABS: Alanine Aminotransferase < 9 U/L (7-40); Alkaline Phosphatase 147 U/L (46-116); Aspartate Aminotransferase 9 U/L (13-40); Bilirubin, Total 0.2 mg/dL (0.2-1.0); Chloride 109 mmol/L (98-107); Total Protein 5.5 g/dL (5.7-8.2)
[2024-08-04 03:22] LABS: BUN/Creatinine Ratio 15.4 (10.0-20.0)
[2024-08-04 03:23] LABS: Blood Urea Nitrogen 8 mg/dL (9-23)
[2024-08-04 07:00] VITALS: BP 123/77; PULSE 81; RESP 20; TEMP 97.6; O2SAT 97
--- NOTE | 2024-08-04 07:46 | DVHDS2 ---
Physician Discharge Progress N Final Diagnosis: Term , delivered Mild pre-eclampsia Operations or Procedures: Operations or Procedures Induction of labor with Condition on Discharge: Stable Disposition: Home Discharge Instructions: Diet: Regular Activity: Light activity Follow Up/Referral: [address] Horn for BP check in office Medications: Ibuprofen PRN pain Follow Up Care: Discharge Statement: "Patient was advised to return to the ER or call 911 if any headaches, dizziness, shortness of breath, chest pain, abdominal pain, bleeding, fevers, or worsening of medical condition. Patient was counseled about treatment plan, medications, possible side effects, patientverbalized understanding. All questions were answered to the best of my ability. This discharge took greater then 30 minutes in planning, reviewing documentation, counseling the patient, and discussing with other team members." DARRELL HORN DO Aug 04, 2024 07:46
[2024-08-04] MEDS ORDERED: IBU600T PO (07:47)
[2024-08-04 11:00] VITALS: BP 134/86; PULSE 68; RESP 16; TEMP 98.2; O2SAT 97
[2024-08-04] MEDS: ACETAMINOPHEN 325 MG TAB PO PRN (14:55)
[2024-08-04 15:00] VITALS: BP 133/84; PULSE 89; RESP 16; TEMP 97.6; O2SAT 100
[2024-08-06 07:06] LABS: RPR Non Reactive (Non Reactive)
[2024-08-06 10:55] LABS: Treponema Pallidum Ab LC Non Reactive (Non Reactive)
== END 2024-08-04 17:51 | disposition home or self-care (01) | DRG 560 ==
LOC: LDRP 21:00
PROVIDERS: ADMIT Obstetrics & Gynecology; ATTEND Obstetrics & Gynecology
PROC: 10E0XZZ Delivery of Products of Conception, External Approach (ICD-10-PCS; principal; 2024-08-03)
PROC: 3E033VJ Introduction of Other Hormone into Peripheral Vein, Percutaneous Approach (ICD-10-PCS; 2024-08-03)
PROC: 3E0R3BZ Introduction of Anesthetic Agent into Spinal Canal, Percutaneous Approach (ICD-10-PCS; 2024-08-03)
PROC: 00HU33Z Insertion of Infusion Device into Spinal Canal, Percutaneous Approach (ICD-10-PCS; 2024-08-03)
PROC: 10907ZC Drainage of Amniotic Fluid, Therapeutic from Products of Conception, Via Natural or Artificial Opening (ICD-10-PCS; 2024-08-03)
DX: O14.04 Mild to moderate pre-eclampsia, complicating childbirth (principal); Z37.0 Single live birth; E66.01 Morbid (severe) obesity due to excess calories; O99.824 Streptococcus B carrier state complicating childbirth; O99.214 Obesity complicating childbirth; Z3A.39 39 weeks gestation of pregnancy
CPT/HCPCS: 36415; 59025; 59409; 62282; 80053; 80307; 81001; 85025; 85610; 85730; 86592; 86780; 86803; 86850; 86900; 86901; 94760; 96360; 96361; 96365; 96366; G0378; J2540; J2590; J7060